=== PATIENT | female | born 1955 ===

== ENCOUNTER 2017-05-25 06:29 | Day surgery (SDC) | payer MEDICARE ==
[2017-05-25 07:26] VITALS: BMI 34.9
[2017-05-25] MEDS ORDERED: Lactated Ringer's 500 ML IV ONE (08:57)
[2017-05-25] MEDS ORDERED: Propofol 10 mg/ml Inj (20 ML) ONE (08:59)
[2017-05-25] MEDS ORDERED: Lactated Ringer's 500 ML IV SCH (09:30)
[2017-05-25 10:19] VITALS: TEMP 97.6
[2017-05-25 10:20] VITALS: O2SAT 98
[2017-05-25 10:56] VITALS: BP 116/76; PULSE 66; RESP 17
== END 2017-05-25 10:50 | disposition home or self-care (01) ==
LOC: C.ENDO 06:29
PROVIDERS: ATTEND Internal Medicine Gastroenterology
DX: D12.3 Benign neoplasm of transverse colon (principal); K57.30 Diverticulosis of large intestine without perforation or abscess without bleeding; K64.1 Second degree hemorrhoids
CPT/HCPCS: 45380; 45385; 82948; 87045; 87177; 87209; 87230; 88305; J2704; J3010; J7120

== ENCOUNTER 2017-08-05 14:57 | Inpatient (IN) | payer MEDICARE ==
[2017-08-05 15:16] VITALS: BMI 35.4
[2017-08-05] MEDS ORDERED: Sodium Chloride 0.9% 1,000 ML IV STA (16:25)
[2017-08-05] MEDS ORDERED: Iohexol 300 100 ML IJ ONE (16:42)
[2017-08-05] MEDS ORDERED: Sodium Chloride 0.9% 1,000 ML ONE (16:43)
[2017-08-05 16:48] LABS: BASO # 0.1 K/uL (0.0-0.2); BASO % 1.4 % (0.0-2.0); EOS # 0.7 K/uL (0.0-0.7); EOS % 8.2 % (0.0-4.0); HEMOGLOBIN 13.8 g/dL (11.0-16.0); LYMPH # 2.7 K/uL (1.0-4.3); LYMPH % 33.1 % (20.0-40.0); MEAN CORPUSCULAR HEMOGLOBIN 31.2 pg (27.0-31.0); MEAN CORPUSCULAR HGB CONC 34.7 g/dL (33.0-37.0); MEAN PLATELET VOLUME 8.5 fL (7.2-11.7); MONO # 0.7 K/uL (0.0-0.8); MONO % 9.2 % (0.0-10.0); NEUT # 3.9 K/uL (1.8-7.0); NEUT % 48.1 % (50.0-75.0); NRBC % 0.1 % (0.0-2.0); RBC 4.42 Mil/uL (3.80-5.20); RED CELL DISTRIBUTION WIDTH 13.1 % (11.5-14.5); WHITE BLOOD COUNT 8.1 K/uL (4.8-10.8)
[2017-08-05 16:58] LABS: ALB/GLOB RATIO 1.3 (1.0-2.1); ALBUMIN 4.4 g/dL (3.5-5.0); ALT/SGPT 22 U/L (9-52); AST/SGOT 25 U/L (14-36); BLOOD UREA NITROGEN 13 mg/dL (7-17); CALCIUM 9.6 mg/dl (8.6-10.4); GFR AFRICAN-AMERICAN > 60; GFR NON-AFRICAN AMERICAN > 60; LIPASE 125 U/L (23-300)
[2017-08-05 17:05] LABS: SQUAMOUS EPITHIAL 3 /hpf (0-5); URINE BACTERIA RARE (<OCC); URINE BILIRUBIN NEGATIVE (NEGATIVE); URINE BLOOD NEGATIVE (NEGATIVE); URINE CLARITY Hazy (Clear); URINE COLOR Yellow (YELLOW); URINE GLUCOSE (UA) NORMAL (Normal); URINE LEUKOCYTE ESTERASE NEG Leu/uL (Negative); URINE NITRATE NEGATIVE (NEGATIVE); URINE PROTEIN NEGATIVE (NEGATIVE); URINE UROBILINOGEN NORMAL mg/dL (0.2-1.0)
--- NOTE | 2017-08-05 18:25 | CT ---
PROCEDURE: CT Abdomen and Pelvis with contrast HISTORY: Left lower quadrant abdominal pain, diarrhea. COMPARISON: None 300 TECHNIQUE: Contrast dose: 100 cc Omnipaque Radiation dose: Total exam DLP = 948.44 mGy-cm. This CT exam was performed using one or more of the following dose reduction techniques: Automated exposure control, adjustment of the mA and/or kV according to patient size, and/or use of iterative reconstruction technique. FINDINGS: LOWER THORAX: Suspicious, spiculated mass right lower lobe 8 mm. There may be an additional 4 mm nodule in the left lower lobe. Follow-up CT of the thorax strongly recommended. LIVER: Hepatomegaly. Hepatic steatosis. No focal masses. No intrahepatic bile duct dilatation or perihepatic ascites. GALLBLADDER AND BILE DUCTS: Status post cholecystectomy. No abnormality is seen in the gallbladder fossa. PANCREAS: Unremarkable. No gross lesion or ductal dilatation. SPLEEN: Unremarkable. ADRENALS: Unremarkable. No mass. KIDNEYS AND URETERS: Unremarkable. No hydronephrosis. No solid mass. Incidental finding(s): Midpole cyst right kidney 1.5 cm in diameter. VASCULATURE: Unremarkable. No aortic aneurysm. BOWEL: Thickening of the wall of the descending colon and sigmoid the overall appearance despite presence of diverticular disease suggest mild colitis. APPENDIX: No abnormalities to suggest acute appendicitis. No right lower quadrant inflammatory processes identified. PERITONEUM: Unremarkable. No free fluid. No free air. LYMPH NODES: Unremarkable. No enlarged lymph nodes. BLADDER: Unremarkable. REPRODUCTIVE: Prior hysterectomy. BONES: No acute fracture. OTHER FINDINGS: None. IMPRESSION: 1. Diffuse thickening of the wall of the descending colon and sigmoid consistent with colitis. 2. Approximately 1 cm spiculated mass right lower lobe lateral segment, follow-up CT of the entire thorax is recommended. Additional benign and/or incidental findings described above.
--- NOTE | 2017-08-05 18:29 | C.PDOC ---
History Of Present Illness 62 year old female presents to ED for evaluation of abdominal pain for the past week and diarrhea for the past 2 days. Denies blood in stool, nausea, vomiting, urinary symptoms, back pain, or fever. Time Seen by Provider: 08/05/17 16:05 Chief Complaint (Nursing): Abdominal Pain History Per: Patient History/Exam Limitations: no limitations Onset/Duration Of Symptoms: Days Current Symptoms Are (Timing): Still Present Radiation Of Pain To:: None Quality Of Discomfort: "Pain" Associated Symptoms: Diarrhea. denies: Loss Of Appetite, Back Pain, Chest Pain , Constipation, Urinary Symptoms Exacerbating Factors: None Alleviating Factors: None Recent travel outside of the [place]: No Additional History Per: Patient Abnormal Vaginal Bleeding: No Past Medical History Reviewed: Historical Data, Nursing Documentation, Vital Signs Vital Signs: Last Vital Signs Temp 98.1 F 08/05/17 15:15 Pulse 79 08/05/17 15:15 Resp 20 08/05/17 15:15 BP 117/70 08/05/17 15:15 Pulse Ox 96 08/05/17 18:31 - Medical History PMH: Asthma, Back Problems (2 HERNIATED DISC), Bronchitis, Colonic Polyps, Diabetes, HTN, Hypercholesterolemia Denies: Chronic Kidney Disease Surgical History: Cholecystectomy, Endoscopy Denies: Pacemaker - [facility] Procedures ENDOSC POLYPECTOMY OF LG INTEST (03/28/14) ESOPHAGOGASTRODUODENOSCOPY [EGD] W/CLOSED BIOPSY (03/28/14) Family History: States: Unknown Family Hx - Social History Hx Tobacco Use: No Hx Alcohol Use: No Hx Substance Use: No - Immunization History Hx Tetanus Toxoid Vaccination: No Hx Influenza Vaccination: No Hx Pneumococcal Vaccination: Yes Review Of Systems Except As Marked, All Systems Reviewed And Found Negative. Constitutional: Negative for: Fever, Chills Gastrointestinal: Positive for: Abdominal Pain, Diarrhea. Negative for: Nausea , Vomiting, Constipation, Melena, Hematochezia Genitourinary: Negative for: Dysuria, Frequency, Hematuria, Vaginal Discharge Musculoskeletal: Negative for: Back Pain Physical Exam - Physical Exam Appears: Non-toxic, No Acute Distress Skin: Normal Color, Warm, Dry Head: Atraumatic, Normacephalic Eye(s): bilateral: Normal Inspection Oral Mucosa: Moist Neck: Normal ROM, Supple Cardiovascular: Rhythm Regular, No Murmur Respiratory: Normal Breath Sounds, No Rales, No Rhonchi, No Wheezing Gastrointestinal/Abdominal: Soft, Tenderness (LLQ), No Guarding, No Rebound Back: No CVA Tenderness Extremity: Normal ROM, No Deformity Neurological/Psych: Oriented x3, Normal Speech ED Course And Treatment - Laboratory Results Result Diagrams: 08/05/17 16:40 08/05/17 16:40 O2 Sat by Pulse Oximetry: 96 (RA) Pulse Ox Interpretation: Normal - CT Scan/US CT of abdomen/Pelvis Other Rad Studies (CT/US): Read By Radiologist, Radiology Report Reviewed CT/US Interpretation: Accession No. : [id number]. Patient Name / ID : JOHN BOCANEGRA / [id number]. Exam Date : 08/05/2017 18:05:59 ( Approved ). Study Comment : Sex / Age : F / 62Y. Creator : Luis A Ohara MD. Dictator : Luis A Ohara MD. Hospice Clinical Manager : Pie Crimping Machine Operator : Luis A Ohara MD. Approver2 : Report Date : 08/05/2017 18:23:41. My Comment : . PROCEDURE: CT Abdomen and Pelvis with contrast. HISTORY: Left lower quadrant abdominal pain, diarrhea. COMPARISON: None 300. TECHNIQUE: Contrast dose: 100 cc Omnipaque. Radiation dose: Total exam DLP = 948.44 mGy- cm. This CT exam was performed using one or more of the following dose reduction techniques: Automated exposure control, adjustment of the mA and/or kV according to patient size, and/or use of iterative reconstruction technique. FINDINGS: LOWER THORAX: Suspicious, spiculated mass right lower lobe 8 mm. There may be an additional 4 mm nodule in the left lower lobe. Follow-up CT of the thorax strongly recommended. LIVER: Hepatomegaly. Hepatic steatosis. No focal masses. No intrahepatic bile duct dilatation or perihepatic ascites. GALLBLADDER AND BILE DUCTS: Status post cholecystectomy. No abnormality is seen in the gallbladder fossa. PANCREAS: Unremarkable. No gross lesion or ductal dilatation. SPLEEN: Unremarkable. ADRENALS: Unremarkable. No mass. KIDNEYS AND URETERS: Unremarkable. No hydronephrosis. No solid mass. Incidental finding(s): Midpole cyst right kidney 1.5 cm in diameter. VASCULATURE: Unremarkable. No aortic aneurysm. BOWEL: Thickening of the wall of the descending colon and sigmoid the overall appearance despite presence of diverticular disease suggest mild colitis. APPENDIX: No abnormalities to suggest acute appendicitis. No right lower quadrant inflammatory processes identified. PERITONEUM: Unremarkable. No free fluid. No free air. LYMPH NODES : Unremarkable. No enlarged lymph nodes. BLADDER: Unremarkable. REPRODUCTIVE : Prior hysterectomy. BONES: No acute fracture. OTHER FINDINGS: None. IMPRESSION: 1. Diffuse thickening of the wall of the descending colon and sigmoid consistent with colitis. 2. Approximately 1 cm spiculated mass right lower lobe lateral segment, follow-up CT of the entire thorax is recommended. Additional benign and/or incidental findings described above. Progress Note: Blood work, UA, Abd & Pelvis CT ordered and reviewed. Pt was given IV fluids. case was d/w who accepted patient on his service for rena dmission. He will order Chest CT. Cipro and Flagyl ordered. resident engineer was informed. Disposition - Disposition Disposition: HOSPITALIZED Disposition Time: 18:49 Condition: FAIR Forms: [employer] (Nepali) - Clinical Impression Clinical Impression: Colitis, Mass of right lung - PA / CELL CHANGER / Resident Statement MD/DO has reviewed & agrees with the documentation as recorded. - Scribe Statement The provider has reviewed the documentation as recorded by the Daveibramon Sunshine All medical record entries made by the J Carlos were at my direction and personally dictated by me. I have reviewed the chart and agree that the record accurately reflects my personal performance of the history, physical exam, medical decision making, and the department course for this patient. I have also personally directed, reviewed, and agree with the discharge instructions and disposition. Decision To Admit - Pt Status Changed To: Hospital Disposition Of: Inpatient - Admit Certification Admit to Inpatient:: After my assessment, the patient will require hospitalization for at least two midnights. This is because of the severity of symptoms shown, intensity of services needed, and/or the medical risk in this patient being treated as an outpatient. - InPatient: Physician Admission Certification:: Pt will need IV antibiotics and work up for the lung mass. It will take more than 2 days. - . Bed Request Type: Regular Patient Diagnosis: Colitis, Mass of right lung
[2017-08-05] MEDS ORDERED: Ciprofloxacin 400mg/200ml D5W 400 MG/200 ML BAG IV STA (18:46)
[2017-08-05] MEDS ORDERED: metroNIDAZOLE IV 500 mg/100 ml 500 MG/100 ML BAG IV STA (18:46)
[2017-08-05] MEDS ORDERED: Ciprofloxacin 400mg/200ml D5W 400 MG/200 ML BAG IVPB ONE (18:59)
[2017-08-05] MEDS ORDERED: metroNIDAZOLE IV 500 mg/100 ml 500 MG/100 ML BAG ONE (19:00)
[2017-08-05] MEDS: Sodium Chloride 0.9% 1,000 ML IV SCH (20:26)
--- NOTE | 2017-08-05 20:36 | CP.PCM.HP ---
History of Present Illness - History of Present Illness History of Present Illness: CC: "Diarrhea" HPI: 60 year old female with past medical history of DM, HTN, and Asthma presents to the ED for diarrhea. Patient states she started to have watery diarrhea for almost a week now she states she has about 3-4 episodes per day. She also states she has had chills and night sweats. She also states she has diffuse abdominal pain that started about the same time. She states her last episode of diarrhea was around 1 pm today. She has not been able to eat anything since Tuesday because she feels nauseated. She states she has not vomited but has not ate or drank anything. She also states she has a slight cough with no phlegm and she has nasal congestion. She denies any sick contacts but states her daughter has been recently admitted to the hospital for gastroperesis. She denies chest pain, palpitations, shortness of breath or fever. PMD: Dr. Lui Past Medical History: Asthma, DM, diabetic neuropathy, HTN, Vertigo, gout Past Surgical History: Open cholecystectomy, hysterectomy, C-sections x 2 Medications: (patient does not know doses) Enalapril, Meclizine; Gabapentin, Aspirin, Trujenta, Advair, Albuterol Allergies: NKDA Family History: Mother - living at 93 years of age, father had DM- passed at the age of 75. Social History: Denies tobacco use, illicit drug use, admits to occasional alcohol use Present on Admission - Present on Admission Any Indicators Present on Admission: No Review of Systems - Constitutional Constitutional: Chills, Night Sweats. absent: Fever - EENT Eyes: absent: Change in Vision Nose/Mouth/Throat: Nasal Congestion - Cardiovascular Cardiovascular: absent: Chest Pain, Dyspnea, Palpitations - Respiratory Respiratory: Cough. absent: Dyspnea - Gastrointestinal Gastrointestinal: Diarrhea, Nausea. absent: Constipation, Vomiting - Genitourinary Genitourinary: absent: Dysuria Past Patient History - Infectious Disease Hx of Infectious Diseases: None - Past Medical History & Family History Past Medical History?: Yes - Past Social History Smoking Status: Never Smoked - CARDIAC Hx Hypercholesterolemia: Yes Hx Hypertension: Yes Hx Pacemaker: No - PULMONARY Hx Asthma: Yes Hx Bronchitis: Yes - NEUROLOGICAL Hx Neurological Disorder: Yes Hx Vertigo: Yes - HEENT Hx HEENT Problems: No Hx Cataracts: Yes Hx Glaucoma: Yes - RENAL Hx Chronic Kidney Disease: No - ENDOCRINE/METABOLIC Hx Endocrine Disorders: Yes Hx Diabetes Mellitus Type 1: Yes Hx Diabetes Mellitus Type 2: Yes - HEMATOLOGICAL/ONCOLOGICAL Hx Blood Disorders: No Hx Blood Transfusions: No - INTEGUMENTARY Hx Dermatological Problems: No - GASTROINTESTINAL Hx Gastrointestinal Disorders: Yes Hx Gastroesophageal Reflux: Yes Other/Comment: HIATAL HERNIA - GENITOURINARY/GYNECOLOGICAL Hx Genitourinary Disorders: Yes Hx Reproductive Disorders: Yes (HX.FIBROIDS) - PSYCHIATRIC Hx Substance Use: No - SURGICAL HISTORY Hx Cholecystectomy: Yes - ANESTHESIA Hx Anesthesia: Yes Hx Anesthesia Reactions: No Hx Malignant Hyperthermia: No Meds Allergies/Adverse Reactions: Allergies Allergy/AdvReac Type Severity Reaction Status Date / Time No Known Allergies Allergy Verified 05/25/17 07:25 Physical Exam - Constitutional Appears: Toxic, No Acute Distress - Head Exam Head Exam: ATRAUMATIC, NORMAL INSPECTION - Eye Exam Eye Exam: EOMI, Normal appearance - ENT Exam ENT Exam: Mucous Membranes Dry - Respiratory Exam Respiratory Exam: Wheezes, NORMAL BREATHING PATTERN. absent: Clear to Auscultation Bilateral - Cardiovascular Exam Cardiovascular Exam: REGULAR RHYTHM, RRR, +S1, +S2 - GI/Abdominal Exam GI & Abdominal Exam: Normal Bowel Sounds, Soft, Tenderness (LLQ). absent: Distended, Firm, Guarding - Extremities Exam Extremities exam: Positive for: normal inspection. Negative for: pedal edema, tenderness - Neurological Exam Neurological exam: Alert, CN II-XII Intact, Oriented x3 - Psychiatric Exam Psychiatric exam: Normal Affect, Normal Mood - Skin Skin Exam: Normal Color, Warm Results - Vital Signs Recent Vital Signs: Last Vital Signs Temp 98.1 F 08/05/17 15:15 Pulse 78 08/05/17 19:35 Resp 18 08/05/17 19:35 BP 154/68 H 08/05/17 19:35 Pulse Ox 100 08/05/17 19:35 - Labs Result Diagrams: 08/05/17 16:40 08/05/17 16:40 Labs: Laboratory Results - last 24 hr 08/05/17 08/05/17 08/05/17 16:40 16:40 16:53 WBC 8.1 RBC 4.42 Hgb 13.8 Hct 39.8 MCV 90.0 MCH 31.2 H MCHC 34.7 RDW 13.1 Plt Count 424 H MPV 8.5 Neut % (Auto) 48.1 L Lymph % (Auto) 33.1 [place] % (Auto) 9.2 Eos % (Auto) 8.2 H Baso % (Auto) 1.4 Neut # (Auto) 3.9 Lymph # (Auto) 2.7 [place] # (Auto) 0.7 Eos # (Auto) 0.7 Baso # (Auto) 0.1 Sodium 143 Potassium 3.7 Chloride 100 Carbon Dioxide 32 H Anion Gap 14 BUN 13 Creatinine 0.8 Est GFR ( Amer) > 60 Est GFR (Non-Af Amer) > 60 POC Glucose (mg/dL) Random Glucose 114 H Calcium 9.6 Total Bilirubin 0.9 AST 25 ALT 22 Alkaline Phosphatase 70 Total Protein 7.9 Albumin 4.4 Globulin 3.5 Albumin/Globulin Ratio 1.3 Lipase 125 Urine Color Yellow Urine Clarity Hazy Urine pH 5.0 Ur Specific [place] 1.024 Urine Protein Negative Urine Glucose (UA) Normal Urine Ketones Negative Urine Blood Negative Urine Nitrate Negative Urine Bilirubin Negative Urine Urobilinogen Normal Ur Leukocyte Esterase Neg Urine WBC (Auto) 1 Urine RBC (Auto) < 1 Ur Squamous Epith Cells 3 Urine Bacteria Rare 08/05/17 08/05/17 19:24 19:29 WBC RBC Hgb Hct MCV MCH MCHC RDW Plt Count MPV Neut % (Auto) Lymph % (Auto) [place] % (Auto) Eos % (Auto) Baso % (Auto) Neut # (Auto) Lymph # (Auto) [place] # (Auto) Eos # (Auto) Baso # (Auto) Sodium Potassium Chloride Carbon Dioxide Anion Gap BUN Creatinine Est GFR ( Amer) Est GFR (Non-Af Amer) POC Glucose (mg/dL) 68 77 Random Glucose Calcium Total Bilirubin AST ALT Alkaline Phosphatase Total Protein Albumin Globulin Albumin/Globulin Ratio Lipase Urine Color Urine Clarity Urine pH Ur Specific [place] Urine Protein Urine Glucose (UA) Urine Ketones Urine Blood Urine Nitrate Urine Bilirubin Urine Urobilinogen Ur Leukocyte Esterase Urine WBC (Auto) Urine RBC (Auto) Ur Squamous Epith Cells Urine Bacteria Assessment & Plan - Assessment and Plan (Free Text) Assessment: 1.) Colitis - CT of Abd/Pelvis: 1. Diffuse thickening of the wall of the descending colon and sigmoid consistent with colitis. 2. Approximately 1 cm spiculated mass right lower lobe lateral segment, follow-up CT of the entire thorax is recommended. - Zofran PRN nausea - NS @75cc/hr - Liquid Diet - Metronidazole 500mg q8h - Florastor 250mg daily - f/u influenza 2) DM - Liquid Diet (consistant carbs) - accuchecks - Hypoglycemia protocol 3) Asthma - Cont home medication: Advair - Duonebs q6h 4.) Cough - f/u Chest X-ray - Mucinex 600mg po HS 4) HTN -Cont home medication: Enalapril, HTZ 12.5mg po daily 5) Vertigo - Cont home medication: Meclizine 25mg po HS 6) History of Diabetic Neuropathy - Continue home medication: Gabapentin 300mg po HS 7) GI/DVT prophylaxis - Heparin SC - Protonix 40mg q2h Case discussed with Dr. Sania Dai PGY-1
[2017-08-05] MEDS ORDERED: guaiFENesin 600 mg ER Tab PO ONE (20:42)
[2017-08-05] MEDS: (Novolin R) Insulin Human Regular 100 units/ml vial SC SCH (22:00)
[2017-08-05] MEDS: metroNIDAZOLE IV 500 mg/100 ml 500 MG/100 ML BAG IVPB SCH (22:00)
[2017-08-06] MEDS ORDERED: Pneumococcal 23-Valent Vaccine IM ONE (04:34)
[2017-08-06] MEDS: metroNIDAZOLE IV 500 mg/100 ml 500 MG/100 ML BAG IVPB SCH ×3 (05:28→21:26)
[2017-08-06] MEDS: (Novolin R) Insulin Human Regular 100 units/ml vial SC SCH ×4 (08:11→21:26)
[2017-08-06 08:46] VITALS: RESP 20
[2017-08-06] MEDS: Sodium Chloride 0.9% 1,000 ML IV SCH ×3 (09:44→22:14)
[2017-08-06] MEDS: Saccharomyces Boulardi 250 mg Cap PO SCH (09:49)
[2017-08-06] MEDS: guaiFENesin 600 mg ER Tab PO SCH ×2 (09:54→17:22)
--- NOTE | 2017-08-06 11:50 | RAD ---
HISTORY: Coughing, hx of asthma COMPARISON: 05/31/2016 FINDINGS: LUNGS: Mild bibasilar atelectasis PLEURA: No significant pleural effusion identified, no pneumothorax apparent. CARDIOVASCULAR: Normal. OSSEOUS STRUCTURES: No significant abnormalities. VISUALIZED UPPER ABDOMEN: Normal. OTHER FINDINGS: None. IMPRESSION: Mild bibasilar atelectasis
[2017-08-06] MEDS: MethylPREDNISolone 40 mg Vial IVP SCH ×2 (14:00→21:25)
--- NOTE | 2017-08-06 17:00 | CP.PCM.DIS ---
Provider - Provider Date of Admission: 08/05/17 18:46 Attending physician: Chavez Lui Jr, MD Primary care physician: Dr. Lui Time Spent in preparation of Discharge (in minutes): 45 Hospital Course - Lab Results Lab Results: Most Recent Lab Values WBC 8.1 K/uL (4.8-10.8) 08/05/17 16:40 RBC 4.42 Mil/uL (3.80-5.20) 08/05/17 16:40 Hgb 13.8 g/dL (11.0-16.0) 08/05/17 16:40 Hct 39.8 % (34.0-47.0) 08/05/17 16:40 MCV 90.0 fL (81.0-99.0) 08/05/17 16:40 MCH 31.2 pg (27.0-31.0) H 08/05/17 16:40 MCHC 34.7 g/dL (33.0-37.0) 08/05/17 16:40 RDW 13.1 % (11.5-14.5) 08/05/17 16:40 Plt Count 424 K/uL (130-400) H 08/05/17 16:40 MPV 8.5 fL (7.2-11.7) 08/05/17 16:40 Neut % (Auto) 48.1 % (50.0-75.0) L 08/05/17 16:40 Lymph % (Auto) 33.1 % (20.0-40.0) 08/05/17 16:40 [place] % (Auto) 9.2 % (0.0-10.0) 08/05/17 16:40 Eos % (Auto) 8.2 % (0.0-4.0) H 08/05/17 16:40 Baso % (Auto) 1.4 % (0.0-2.0) 08/05/17 16:40 Neut # (Auto) 3.9 K/uL (1.8-7.0) 08/05/17 16:40 Lymph # (Auto) 2.7 K/uL (1.0-4.3) 08/05/17 16:40 [place] # (Auto) 0.7 K/uL (0.0-0.8) 08/05/17 16:40 Eos # (Auto) 0.7 K/uL (0.0-0.7) 08/05/17 16:40 Baso # (Auto) 0.1 K/uL (0.0-0.2) 08/05/17 16:40 Sodium 143 mmol/L (132-148) 08/05/17 16:40 Potassium 3.7 mmol/L (3.6-5.2) 08/05/17 16:40 Chloride 100 mmol/L (98-107) 08/05/17 16:40 Carbon Dioxide 32 mmol/L (22-30) H 08/05/17 16:40 Anion Gap 14 (10-20) 08/05/17 16:40 BUN 13 mg/dL (7-17) 08/05/17 16:40 Creatinine 0.8 mg/dL (0.7-1.2) 08/05/17 16:40 Est GFR ( Amer) > 60 08/05/17 16:40 Est GFR (Non-Af Amer) > 60 08/05/17 16:40 POC Glucose (mg/dL) 104 mg/dL (65-110) 08/06/17 16:36 Random Glucose 114 mg/dL (65-105) H 08/05/17 16:40 Calcium 9.6 mg/dl (8.6-10.4) 08/05/17 16:40 Total Bilirubin 0.9 mg/dL (0.2-1.3) 08/05/17 16:40 AST 25 U/L (14-36) 08/05/17 16:40 ALT 22 U/L (9-52) 08/05/17 16:40 Alkaline Phosphatase 70 U/L (38-126) 08/05/17 16:40 Total Protein 7.9 g/dL (6.3-8.3) 08/05/17 16:40 Albumin 4.4 g/dL (3.5-5.0) 08/05/17 16:40 Globulin 3.5 gm/dL (2.2-3.9) 08/05/17 16:40 Albumin/Globulin Ratio 1.3 (1.0-2.1) 08/05/17 16:40 Lipase 125 U/L (23-300) 08/05/17 16:40 Urine Color Yellow (YELLOW) 08/05/17 16:53 Urine Clarity Hazy (Clear) 08/05/17 16:53 Urine pH 5.0 (5.0-8.0) 08/05/17 16:53 Ur Specific [place] 1.024 (1.003-1.030) 08/05/17 16:53 Urine Protein Negative mg/dL (NEGATIVE) 08/05/17 16:53 Urine Glucose (UA) Normal mg/dL (Normal) 08/05/17 16:53 Urine Ketones Negative mg/dL (NEGATIVE) 08/05/17 16:53 Urine Blood Negative (NEGATIVE) 08/05/17 16:53 Urine Nitrate Negative (NEGATIVE) 08/05/17 16:53 Urine Bilirubin Negative (NEGATIVE) 08/05/17 16:53 Urine Urobilinogen Normal mg/dL (0.2-1.0) 08/05/17 16:53 Ur Leukocyte Esterase Neg [place]/uL (Negative) 08/05/17 16:53 Urine WBC (Auto) 1 /hpf (0-5) 08/05/17 16:53 Urine RBC (Auto) < 1 /hpf (0-3) 08/05/17 16:53 Ur Squamous Epith Cells 3 /hpf (0-5) 08/05/17 16:53 Urine Bacteria Rare (<OCC) 08/05/17 16:53 Influenza Typ A,B (EIA) Negative for flu a/b (NEGATIVE) 08/05/17 20:35 - Hospital Course Hospital Course: CC: "Diarrhea" HPI: 60 year old female with past medical history of DM, HTN, and Asthma presents to the ED for diarrhea. Patient states she started to have watery diarrhea for almost a week now she states she has about 3-4 episodes per day. She also states she has had chills and night sweats. She also states she has diffuse abdominal pain that started about the same time. She states her last episode of diarrhea was around 1 pm today. She has not been able to eat anything since Tuesday because she feels nauseated. She states she has not vomited but has not ate or drank anything. She also states she has a slight cough with no phlegm and she has nasal congestion. She denies any sick contacts but states her daughter has been recently admitted to the hospital for gastroperesis. She denies chest pain, palpitations, shortness of breath or fever. PMD: Dr. Lui Past Medical History: Asthma, DM, diabetic neuropathy, HTN, Vertigo, gout Past Surgical History: Open cholecystectomy, hysterectomy, C-sections x 2 Medications: (patient does not know doses) Enalapril, Meclizine; Gabapentin, Aspirin, Trujenta, Advair, Albuterol Allergies: NKDA Family History: Mother - living at 93 years of age, father had DM- passed at the age of 75. Social History: Denies tobacco use, illicit drug use, admits to occasional alcohol use Hospital Course: Discharge Exam - Head Exam Head Exam: ATRAUMATIC, NORMAL INSPECTION - Eye Exam Eye Exam: EOMI, Normal appearance - ENT Exam ENT Exam: Mucous Membranes Moist - Respiratory Exam Respiratory Exam: Clear to PA & Lateral, NORMAL BREATHING PATTERN, UNREMARKABLE. absent: Rales, Rhonchi, Wheezes, Respiratory Distress - Cardiovascular Exam Cardiovascular Exam: REGULAR RHYTHM, +S1, +S2 - GI/Abdominal Exam GI & Abdominal Exam: Normal Bowel Sounds, Tenderness (diffuse). absent: Distended, Firm, Soft - Extremities Exam Extremities exam: normal inspection - Neurological Exam Neurological exam: Alert - Psychiatric Exam Psychiatric exam: Normal Affect, Normal Mood - Skin Skin Exam: Dry, Intact, Normal Color, Warm Discharge Plan - Discharge Medications Prescriptions: Ciprofloxacin [Cipro] 500 mg PO BID #14 tab Methylprednisolone [Medrol Dose Pack (21 tabs)] 4 mg PO ASDIR #21 mg Metronidazole [Flagyl] 500 mg PO BID #14 tablet - Follow Up Plan Condition: FAIR Disposition: HOME/ ROUTINE Additional Instructions: Patient is stable for discharge to home. Patient must continue home medications. Patient must take new medications as prescribed: 1. Ciprofloxacin 500mg PO BID- take 1 tablet by mouth twice a day for 7 days 2. Flagyl 500mg PO BID- take 1 tablet by mouth twice a day for 7 days 3. Medrol Dose pack- take as prescribed. Patient must follow up with their PMD, Dr Lui, within 1-2 weeks of discharge. If symptoms worsen or reoccur, patient should return to the ED.
[2017-08-06] MEDS: Albuterol 0.042% Inhal Sol (1.25 mg/3 mL) UD INH SCH (19:28)
--- NOTE | 2017-08-06 19:53 | CP.PCM.PN ---
Subjective - Date & Time of Evaluation Date of Evaluation: 08/06/17 Time of Evaluation: 10:00 - Subjective Subjective: Medicine Progress note for Dr. Lui's service Patient was seen and examined at bedside in no acute distress. Patient reports feeling better, less abdominal pain and one episode of diarrhea earlier this morning. Patient was requesting to go home. Patient denies chest pain, shortness of breath, nausea, vomiting, fevers, headache. Patient was seen later in the afternoon and reports having no episodes of diarrhea. As per nurse, patient later began having increased frequency of diarrhea. Objective - Vital Signs/Intake and Output Vital Signs (last 24 hours): Temp Pulse Resp BP Pulse Ox 97.8 F 65 20 150/91 H 97 08/06/17 15:15 08/06/17 15:15 08/06/17 15:15 08/06/17 15:15 08/06/17 15:15 Intake and Output: 08/06/17 08/07/17 18:59 06:59 Intake Total 1000 Balance 1000 - Medications Medications: Current Medications Acetaminophen (Tylenol 325mg Tab) 650 mg PO Q6 PRN PRN Reason: Pain, moderate (4-7) Last Admin: 08/06/17 14:07 Dose: 650 mg Albuterol Sulfate (Albuterol 0.042% Inhal [place] (1.25mg/3ml) Ud) 1.25 mg INH RQ6 [facility] Last Admin: 08/06/17 19:28 Dose: 1.25 mg Aspirin (Aspirin Chewable) 81 mg PO DAILY [facility] Last Admin: 08/06/17 09:48 Dose: 81 mg Ciprofloxacin (Cipro) 500 mg PO BID [facility] Last Admin: 08/06/17 17:21 Dose: 500 mg Enalapril Maleate (Vasotec) 20 mg PO DAILY [facility] Last Admin: 08/06/17 09:49 Dose: 20 mg Gabapentin (Neurontin) 300 mg PO HS [facility] Last Admin: 08/05/17 22:30 Dose: 300 mg Guaifenesin (Mucinex La) 600 mg PO BID [facility] Last Admin: 08/06/17 17:22 Dose: 600 mg Heparin Sodium (Porcine) (Heparin) 5,000 units SC Q8 [facility] Last Admin: 08/06/17 14:00 Dose: 5,000 units Hydrochlorothiazide (Microzide) 12.5 mg PO DAILY [facility] Last Admin: 08/06/17 09:48 Dose: 12.5 mg Sodium Chloride (Sodium Chloride 0.9%) 1,000 mls @ 75 mls/hr IV .[id number] [facility] Last Admin: 08/06/17 17:22 Dose: 75 mls/hr Metronidazole (Flagyl) 500 mg in 100 mls @ 100 mls/hr IVPB Q8 [facility] Last Admin: 08/06/17 14:00 Dose: 100 mls/hr Insulin Human Regular (Novolin R) 0 unit SC ACHS [facility] PRN Reason: Protocol Last Admin: 08/06/17 16:48 Dose: Not Given Meclizine HCl (Antivert) 25 mg PO HS [facility] Last Admin: 08/05/17 22:30 Dose: 25 mg Methylprednisolone (Solu-Medrol) 40 mg IVP Q12 [facility] Last Admin: 08/06/17 14:00 Dose: 40 mg Ondansetron HCl (Zofran Inj) 4 mg IVP Q6H PRN PRN Reason: Nausea/Vomiting Pantoprazole Sodium (Protonix Inj) 40 mg IVP Q12H [facility] Last Admin: 08/06/17 09:44 Dose: 40 mg Pneumococcal Polyvalent Vaccine (Pneumovax 23 Vaccine) 0.5 ml IM .ONCE ONE Stop: 08/09/17 10:01 Saccharomyces Boulardii (Florastor) 250 mg PO DAILY [facility] Last Admin: 08/06/17 09:49 Dose: 250 mg - Labs Labs: 08/05/17 16:40 08/05/17 16:40 - Constitutional Appears: No Acute Distress - Head Exam Head Exam: NORMAL INSPECTION, NORMOCEPHALIC - Eye Exam Eye Exam: EOMI, Normal appearance - ENT Exam ENT Exam: Mucous Membranes Moist - Respiratory Exam Respiratory Exam: Clear to Ausculation Bilateral, NORMAL BREATHING PATTERN. absent: Rales, Rhonchi, Wheezes, Respiratory Distress - Cardiovascular Exam Cardiovascular Exam: REGULAR RHYTHM, +S1, +S2 - GI/Abdominal Exam GI & Abdominal Exam: Soft, Normal Bowel Sounds. absent: Distended, Firm, Tenderness - Extremities Exam Extremities Exam: Normal Inspection - Neurological Exam Neurological Exam: Alert, Awake, Oriented x3 - Psychiatric Exam Psychiatric exam: Normal Affect, Normal Mood - Skin Skin Exam: Dry, Intact, Normal Color, Warm Assessment and Plan - Assessment and Plan (Free Text) Plan: 1.) Colitis - CT of Abd/Pelvis: 1. Diffuse thickening of the wall of the descending colon and sigmoid consistent with colitis. 2. Approximately 1 cm spiculated mass right lower lobe lateral segment, follow-up CT of the entire thorax is recommended. - Zofran PRN nausea - NS @75cc/hr - Liquid Diet - Metronidazole 500mg q8h - Cipro 500mg PO BID - Solumedrol 40mg IV Q12 - Florastor 250mg daily - Influenza- negative 2) DM - Liquid Diet - accuchecks - Hypoglycemia protocol 3) Asthma - Cont home medication: Advair - Duonebs q6h 4.) Cough - Chest X-ray: mild bibasilar atelectasis - Mucinex 600mg po HS 4) HTN - Cont home medication: Enalapril, HTZ 12.5mg po daily 5) Vertigo - Cont home medication: Meclizine 25mg po HS 6) History of Diabetic Neuropathy - Continue home medication: Gabapentin 300mg po HS 7) GI/DVT prophylaxis - Heparin SC - Protonix 40mg q2h Discussed with Dr. Lui
[2017-08-07] MEDS: Albuterol 0.042% Inhal Sol (1.25 mg/3 mL) UD INH SCH ×3 (01:04→13:42)
[2017-08-07 01:30] VITALS: O2SAT 96
[2017-08-07] MEDS: metroNIDAZOLE IV 500 mg/100 ml 500 MG/100 ML BAG IVPB SCH ×2 (05:10→14:15)
[2017-08-07 07:53] LABS: ALB/GLOB RATIO 1.2 (1.0-2.1); ALBUMIN 3.9 g/dL (3.5-5.0); ALT/SGPT 26 U/L (9-52); AST/SGOT 21 U/L (14-36); BASO # 0.1 K/uL (0.0-0.2); BASO % 0.5 % (0.0-2.0); BLOOD UREA NITROGEN 8 mg/dL (7-17); CALCIUM 9.3 mg/dl (8.6-10.4); GFR AFRICAN-AMERICAN > 60; GFR NON-AFRICAN AMERICAN > 60; HEMOGLOBIN 13.1 g/dL (11.0-16.0); LYMPH # 1.1 K/uL (1.0-4.3); LYMPH % 10.1 % (20.0-40.0); MAGNESIUM 1.8 mg/dL (1.6-2.3); MEAN CELL VOLUME 89.2 fL (81.0-99.0); MEAN CORPUSCULAR HEMOGLOBIN 31.7 pg (27.0-31.0); MEAN CORPUSCULAR HGB CONC 35.5 g/dL (33.0-37.0); MEAN PLATELET VOLUME 8.8 fL (7.2-11.7); MONO # 0.3 K/uL (0.0-0.8); MONO % 2.7 % (0.0-10.0); NEUT # 9.4 K/uL (1.8-7.0); NEUT % 86.7 % (50.0-75.0); RBC 4.12 Mil/uL (3.80-5.20); WHITE BLOOD COUNT 10.9 K/uL (4.8-10.8)
[2017-08-07] MEDS: (Novolin R) Insulin Human Regular 100 units/ml vial SC SCH ×3 (08:10→17:14)
[2017-08-07] MEDS: MethylPREDNISolone 40 mg Vial IVP SCH (10:22)
[2017-08-07] MEDS: Saccharomyces Boulardi 250 mg Cap PO SCH (10:22)
[2017-08-07] MEDS: guaiFENesin 600 mg ER Tab PO SCH ×2 (10:25→17:13)
[2017-08-07] MEDS: Sodium Chloride 0.9% 1,000 ML IV SCH (11:29)
--- NOTE | 2017-08-07 14:13 | CP.PCM.DIS ---
Provider - Provider Date of Admission: 08/05/17 18:46 Attending physician: Chavez Lui Jr, MD Primary care physician: Dr. Lui Time Spent in preparation of Discharge (in minutes): 45 Hospital Course - Lab Results Lab Results: Most Recent Lab Values WBC 10.9 K/uL (4.8-10.8) H 08/07/17 07:15 RBC 4.12 Mil/uL (3.80-5.20) 08/07/17 07:15 Hgb 13.1 g/dL (11.0-16.0) 08/07/17 07:15 Hct 36.8 % (34.0-47.0) 08/07/17 07:15 MCV 89.2 fL (81.0-99.0) 08/07/17 07:15 MCH 31.7 pg (27.0-31.0) H 08/07/17 07:15 MCHC 35.5 g/dL (33.0-37.0) 08/07/17 07:15 RDW 13.0 % (11.5-14.5) 08/07/17 07:15 Plt Count 375 K/uL (130-400) 08/07/17 07:15 MPV 8.8 fL (7.2-11.7) 08/07/17 07:15 Neut % (Auto) 86.7 % (50.0-75.0) H 08/07/17 07:15 Lymph % (Auto) 10.1 % (20.0-40.0) L 08/07/17 07:15 Rogers % (Auto) 2.7 % (0.0-10.0) 08/07/17 07:15 Eos % (Auto) 0.0 % (0.0-4.0) 08/07/17 07:15 Baso % (Auto) 0.5 % (0.0-2.0) 08/07/17 07:15 Neut # (Auto) 9.4 K/uL (1.8-7.0) H 08/07/17 07:15 Lymph # (Auto) 1.1 K/uL (1.0-4.3) 08/07/17 07:15 Rogers # (Auto) 0.3 K/uL (0.0-0.8) 08/07/17 07:15 Eos # (Auto) 0.0 K/uL (0.0-0.7) 08/07/17 07:15 Baso # (Auto) 0.1 K/uL (0.0-0.2) 08/07/17 07:15 Sodium 139 mmol/L (132-148) 08/07/17 07:15 Potassium 4.2 mmol/L (3.6-5.2) 08/07/17 07:15 Chloride 101 mmol/L (98-107) 08/07/17 07:15 Carbon Dioxide 28 mmol/L (22-30) 08/07/17 07:15 Anion Gap 14 (10-20) 08/07/17 07:15 BUN 8 mg/dL (7-17) 08/07/17 07:15 Creatinine 0.6 mg/dL (0.7-1.2) L 08/07/17 07:15 Est GFR ( Amer) > 60 08/07/17 07:15 Est GFR (Non-Af Amer) > 60 08/07/17 07:15 POC Glucose (mg/dL) 157 mg/dL (65-110) H 08/07/17 11:22 Random Glucose 193 mg/dL (65-105) H 08/07/17 07:15 Calcium 9.3 mg/dl (8.6-10.4) 08/07/17 07:15 Phosphorus 3.3 mg/dL (2.5-4.5) 08/07/17 07:15 Magnesium 1.8 mg/dL (1.6-2.3) 08/07/17 07:15 Total Bilirubin 0.4 mg/dL (0.2-1.3) 08/07/17 07:15 AST 21 U/L (14-36) 08/07/17 07:15 ALT 26 U/L (9-52) 08/07/17 07:15 Alkaline Phosphatase 66 U/L (38-126) 08/07/17 07:15 Total Protein 7.1 g/dL (6.3-8.3) 08/07/17 07:15 Albumin 3.9 g/dL (3.5-5.0) 08/07/17 07:15 Globulin 3.1 gm/dL (2.2-3.9) 08/07/17 07:15 Albumin/Globulin Ratio 1.2 (1.0-2.1) 08/07/17 07:15 Lipase 125 U/L (23-300) 08/05/17 16:40 Urine Color Yellow (YELLOW) 08/05/17 16:53 Urine Clarity Hazy (Clear) 08/05/17 16:53 Urine pH 5.0 (5.0-8.0) 08/05/17 16:53 Ur Specific [place] 1.024 (1.003-1.030) 08/05/17 16:53 Urine Protein Negative mg/dL (NEGATIVE) 08/05/17 16:53 Urine Glucose (UA) Normal mg/dL (Normal) 08/05/17 16:53 Urine Ketones Negative mg/dL (NEGATIVE) 08/05/17 16:53 Urine Blood Negative (NEGATIVE) 08/05/17 16:53 Urine Nitrate Negative (NEGATIVE) 08/05/17 16:53 Urine Bilirubin Negative (NEGATIVE) 08/05/17 16:53 Urine Urobilinogen Normal mg/dL (0.2-1.0) 08/05/17 16:53 Ur Leukocyte Esterase Neg Alyssa/uL (Negative) 08/05/17 16:53 Urine WBC (Auto) 1 /hpf (0-5) 08/05/17 16:53 Urine RBC (Auto) < 1 /hpf (0-3) 08/05/17 16:53 Ur Squamous Epith Cells 3 /hpf (0-5) 08/05/17 16:53 Urine Bacteria Rare (<OCC) 08/05/17 16:53 Influenza Typ A,B (EIA) Negative for flu a/b (NEGATIVE) 08/05/17 20:35 - Hospital Course Hospital Course: CC: "Diarrhea" HPI: 60 year old female with past medical history of DM, HTN, and Asthma presents to the ED for diarrhea. Patient states she started to have watery diarrhea for almost a week now she states she has about 3-4 episodes per day. She also states she has had chills and night sweats. She also states she has diffuse abdominal pain that started about the same time. She states her last episode of diarrhea was around 1 pm today. She has not been able to eat anything since Tuesday because she feels nauseated. She states she has not vomited but has not ate or drank anything. She also states she has a slight cough with no phlegm and she has nasal congestion. She denies any sick contacts but states her daughter has been recently admitted to the hospital for gastroperesis. She denies chest pain, palpitations, shortness of breath or fever. PMD: Dr. Lui Past Medical History: Asthma, DM, diabetic neuropathy, HTN, Vertigo, gout Past Surgical History: Open cholecystectomy, hysterectomy, C-sections x 2 Medications: (patient does not know doses) Enalapril, Meclizine; Gabapentin, Aspirin, Trujenta, Advair, Albuterol Allergies: NKDA Family History: Mother- living at 93 years of age, father had DM- passed at the age of 75. Social History: Denies tobacco use, illicit drug use, admits to occasional alcohol use Hospital Course: Patient was admitted on 08/05/17 for colitis. In the ED, labs were drawn, images were taken, and medications were given. Labs showed no leukocytosis at admission and influenza negative. CT of the abdomen/pelvis showed diffuse thickening of the wall of the descending colon and sigmoid consistent with colitis; approximately 1 cm spiculated mass right lower lobe lateral segment, follow-up CT of the entire thorax is recommended. IV fluids, flagyl, ciprofloxacin, zofran, and solumedrol were started. Patient was placed on liquid diet. Patient's history of DM, asthma, HTN, vertigo, diabetic neuropathy were monitored and managed through out hospital stay. Home medications were restarted. Patient was seen and examined this morning at bedside. Patient reports having one episode of diarrhea in the morning, and diarrhea is less frequent. Patient states the liquid diet is upsetting her stomach. Liquid diet was discontinued and patient started on bland diet. Patient is stable for discharge to home. Patient must continue oral antibiotics for 7 days and complete a medrol dose pack. Patient must follow up with PMD, Dr. Lui, with 1-2 weeks of discharge. This is a brief summary of the hospital course. Please see EMR for more details. Discharge Exam - Head Exam Head Exam: NORMAL INSPECTION, NORMOCEPHALIC - Eye Exam Eye Exam: EOMI, Normal appearance - ENT Exam ENT Exam: Mucous Membranes Moist - Respiratory Exam Respiratory Exam: Clear to PA & Lateral, NORMAL BREATHING PATTERN, UNREMARKABLE. absent: Rhonchi, Wheezes, Respiratory Distress - Cardiovascular Exam Cardiovascular Exam: REGULAR RHYTHM, +S1, +S2 - GI/Abdominal Exam GI & Abdominal Exam: Normal Bowel Sounds, Soft, Tenderness (mild, diffuse). absent: Distended, Firm - Extremities Exam Extremities exam: normal inspection - Neurological Exam Neurological exam: Alert, Oriented x3 - Psychiatric Exam Psychiatric exam: Normal Affect, Normal Mood - Skin Skin Exam: Dry, Intact, Normal Color, Warm - Additional Findings Additional findings: - Constitutional Appears: No Acute Distress - Head Exam Head Exam: NORMAL INSPECTION, NORMOCEPHALIC - Eye Exam Eye Exam: EOMI, Normal appearance - ENT Exam ENT Exam: Mucous Membranes Moist - Respiratory Exam Respiratory Exam: Clear to Ausculation Bilateral, NORMAL BREATHING PATTERN. absent: Rales, Rhonchi, Wheezes, Respiratory Distress - Cardiovascular Exam Cardiovascular Exam: REGULAR RHYTHM, +S1, +S2 - GI/Abdominal Exam GI & Abdominal Exam: Soft, Normal Bowel Sounds, Tenderness (w/deep palpation; diffuse). absent: Distended, Firm, - Extremities Exam Extremities Exam: Normal Inspection - Neurological Exam Neurological Exam: Alert, Awake, Oriented x3 - Psychiatric Exam Psychiatric exam: Normal Affect, Normal Mood - Skin Skin Exam: Dry, Intact, Normal Color, Warm Discharge Plan - Discharge Medications Prescriptions: Ciprofloxacin [Cipro] 500 mg PO BID #14 tab Methylprednisolone [Medrol Dose Pack (21 tabs)] 4 mg PO ASDIR #21 mg Metronidazole [Flagyl] 500 mg PO BID #14 tablet - Follow Up Plan Condition: FAIR Disposition: HOME/ ROUTINE Instructions: Ciprofloxacin (By mouth), Metronidazole (By mouth), Methylprednisolone (By mouth), Asthma (GEN), Infectious Colitis (GEN) Additional Instructions: Patient is stable for discharge to home. Patient must continue home medications. Patient must take new medications as prescribed: 1. Ciprofloxacin 500mg PO BID- take 1 tablet by mouth twice a day for 7 days 2. Flagyl 500mg PO BID- take 1 tablet by mouth twice a day for 7 days 3. Medrol Dose pack- take as prescribed. Patient must follow up with their PMD, Dr Lui, within 1-2 weeks of discharge. If symptoms worsen or reoccur, patient should return to the ED.
[2017-08-07] MEDS ORDERED: Pneumococcal 23-Valent Vaccine IM ONE (15:15)
[2017-08-07 18:17] VITALS: BP 146/73; PULSE 79; TEMP 98.5
== END 2017-08-07 18:48 | disposition home or self-care (01) | DRG 392 ==
LOC: C.ER 14:57 → C.9E 18:46 → C.3T 23:09
PROVIDERS: ADMIT Internal Medicine; ATTEND Internal Medicine
DX: K52.9 Noninfective gastroenteritis and colitis, unspecified (principal); K31.84 Gastroparesis; E11.43 Type 2 diabetes mellitus with diabetic autonomic (poly)neuropathy; K44.9 Diaphragmatic hernia without obstruction or gangrene; J45.909 Unspecified asthma, uncomplicated; K21.9 Gastro-esophageal reflux disease without esophagitis; R91.8 Other nonspecific abnormal finding of lung field; I10 Essential (primary) hypertension; H40.9 Unspecified glaucoma; E78.00 Pure hypercholesterolemia, unspecified; Z79.4 Long term (current) use of insulin; Z86.010 Personal history of colon polyps; Z90.710 Acquired absence of both cervix and uterus; Z90.49 Acquired absence of other specified parts of digestive tract

== ENCOUNTER 2017-12-10 13:29 | Emergency (ER) | payer MEDICARE ==
[2017-12-10 13:30] VITALS: BMI 35.4
[2017-12-10 13:59] VITALS: BP 148/88; PULSE 79; RESP 20; TEMP 98.9; O2SAT 98
--- NOTE | 2017-12-10 14:18 | C.PDOC ---
History Of Present Illness 62 year old female presents to the ED complaining of sore throat with associated symptoms of left ear pain and rhinorrhea for the past 3 days. Patient denies any fever, chills, or shortness of breath. Pt has no other medical complaints. PMD: Dr. Lui Time Seen by Provider: 12/10/17 14:08 Chief Complaint (Nursing): ENT Problem History Per: Patient History/Exam Limitations: None Onset/Duration Of Symptoms: Days Current Symptoms Are (Timing): Still Present Past Medical History Reviewed: Historical Data, Nursing Documentation, Vital Signs Vital Signs: Last Vital Signs Temp 98.9 F 12/10/17 13:55 Pulse 79 12/10/17 13:55 Resp 20 12/10/17 13:55 BP 148/88 12/10/17 13:55 Pulse Ox 98 12/10/17 15:15 - Medical History PMH: Asthma, Back Problems (2 HERNIATED DISC), Bronchitis, Colonic Polyps, Diabetes, Hiatal Hernia, HTN, Hypercholesterolemia Denies: Chronic Kidney Disease Surgical History: Cholecystectomy, Endoscopy Denies: Pacemaker - [facility] Procedures ENDOSC POLYPECTOMY OF LG INTEST (03/28/14) ESOPHAGOGASTRODUODENOSCOPY [EGD] W/CLOSED BIOPSY (03/28/14) Family History: States: Diabetes - Social History Hx Tobacco Use: No Hx Alcohol Use: Yes Hx Substance Use: No - Immunization History Hx Tetanus Toxoid Vaccination: No Hx Influenza Vaccination: No Hx Pneumococcal Vaccination: Yes Review Of Systems Except As Marked, All Systems Reviewed And Found Negative. Constitutional: Negative for: Fever, Chills ENT: Positive for: Ear Pain (Left), Nose Discharge, Throat Pain Physical Exam - Physical Exam Appears: Non-toxic, No Acute Distress Skin: Normal Color, Warm, Dry Head: Atraumatic, Normacephalic Eye(s): bilateral: Normal Inspection Ear(s): Left: TM Erythema, Right: Normal Oral Mucosa: Moist Throat: Normal, No Erythema, No Exudate Neck: Normal ROM, Supple Cardiovascular: Rhythm Regular Respiratory: Normal Breath Sounds, No Rales, No Rhonchi, No Wheezing Gastrointestinal/Abdominal: Soft, No Tenderness Extremity: Normal ROM Extremity: Bilateral: Atraumatic Neurological/Psych: Oriented x3 Gait: Steady ED Course And Treatment O2 Sat by Pulse Oximetry: 98 (RA) Pulse Ox Interpretation: Normal Medical Decision Making Medical Decision Making: Impression: Otitis Media Orders: Amoxicillin On re-evaluation, patient is resting comfortably and is in no acute distress. Patient is ready and stable for discharge. Patient instructed to follow up with physician in 1-2 days for further evaluation. Disposition Counseled Patient/Family Regarding: Diagnosis, Need For Followup, Rx Given - Disposition Referrals: Chavez Lui Jr., MD [Medical Doctor] - Disposition: HOME/ ROUTINE Disposition Time: 14:15 Condition: STABLE Additional Instructions: Emily, thank you for letting us take care of you today. Return to the ER if your symptoms worsen, or if any problems. Follow up with Dr. Lui in 2 or 3 days for a re-evaluation. Take the medication listed below as prescribed. / Prescriptions: Amoxicillin [Amoxil 500 mg Cap] 1 tab PO TID #21 cap Instructions: Ear Infections (Otitis Media) Print Language: ICELANDIC - Clinical Impression Clinical Impression: Otitis media of left ear - Scribe Statement The provider has reviewed the documentation as recorded by the Daveibramon Grimaldo All medical record entries made by the J Carlos were at my direction and personally dictated by me. I have reviewed the chart and agree that the record accurately reflects my personal performance of the history, physical exam, medical decision making, and the department course for this patient. I have also personally directed, reviewed, and agree with the discharge instructions and disposition.
== END 2017-12-10 14:40 | disposition home or self-care (01) ==
LOC: C.ER 13:29
DX: H66.92 Otitis media, unspecified, left ear (principal)